=== PATIENT | male | born 1975 | race Caucasian/White ===

== ENCOUNTER → 2016-05-08 | Outpatient (CLI) | payer OTHER ==
--- NOTE | 2016-05-08 15:23 | ECHO ---
DATE OF PROCEDURE: 05/08/2016 REFERRING PHYSICIAN: INDICATION: Palpitations. PATIENT LOCATION: Outpatient. HEIGHT: 168 cm WEIGHT: 95 kg DIMENSIONS: IVS: 1.0 LV: 4.5 LVPW: 1.0 LA: 3.2 Aorta: 3.2 The study is of acceptable technical quality. Apical views were only fair. Left ventricle is of normal size and systolic function with estimated ejection fraction (EF) of 60-65%. No segmental wall motion abnormalities are appreciated. Right ventricle is normal size and systolic function. Both atria are normal. All four cardiac valves were reasonably well seen and appear normal. No pericardial effusion is noted. Inferior vena cava is normal size. Aortic root and aortic arch appear normal. Doppler interrogation reveals no aortic stenosis or insufficiency. There is trace mitral and trace tricuspid insufficiency. Calculated pulmonary artery pressure is within normal limits. There is trace pulmonic insufficiency. Mitral inflow pattern and tissue Doppler imaging of mitral annulus reveal normal diastolic function of left ventricle. CONCLUSION 1. Study is of acceptable technical quality. 2. Normal left ventricle (LV) size, systolic and diastolic function. 3. Trace mitral and tricuspid insufficiency. 4. Normal central venous pressure and normal pulmonary artery pressure. COMMENT: Subacute bacterial endocarditis (SBE) prophylaxis is not recommended. Essentially normal echocardiogram.
== END ==
LOC: M CARPUL 09:42
PROVIDERS: ATTEND Physician Assistant
DX: R00.2 Palpitations (principal)

== ENCOUNTER → 2016-05-14 | Day surgery (SDC) | payer OTHER ==
[~2016-05-14] VITALS: Ht 167.6 cm; Wt 88.5 kg
[~2016-05-14] MED LIST: BACITRACIN OINT 30GM As Ordered ONE; BACITRACIN OINT 30GM TOP ONE; BACT800T5 PO; BUPIVACAINE HCL 0.25% 10 ML VIAL As Ordered ONE; BUPIVACAINE HCL 0.25% 30 ML VIAL XX ONE; KETOROLAC 60 MG/2 ML VIAL (J1885) As Ordered ONE; LIDOCAINE 2% INJ 100 MG/5 ML SDV (FOR ANES.) As Ordered ONE; LIDOCAINE 2% MDV 20 ML VIAL As Ordered ONE; LIDOCAINE 2% MDV 20 ML VIAL XX ONE; LR 1,000 ML IV SCH; MIDAZOLAM INJ 2 MG/2 ML VIAL (J2250) As Ordered ONE; ONDANSETRON 4MG/2ML VIAL (J2405) As Ordered ONE; ONDANSETRON 4MG/2ML VIAL (J2405) IV PRN; PERCOCET 5MG/325MG TAB As Ordered ONE; PERCOCET PO; PROPOFOL 200 MG/20 ML VIAL As Ordered ONE; dexameTHASONE 4 MG/ML 1ML VIAL (J1100) As Ordered ONE; fentaNYL 100 MCG/2 ML INJECTION (J3010) IV PRN; fentaNYL 250 MCG/5 ML INJECTION (J3010) As Ordered ONE
[2016-05-14] MEDS: PERCOCET 5MG/325MG TAB PO PRN ×2 (15:20→15:41)
[2016-05-14 19:00] VITALS: BP 140/80
--- NOTE | 2016-05-15 06:55 | RO ---
DATE OF PROCEDURE: 05/14/2016 PREOPERATIVE DIAGNOSIS: Right hydrocele. POSTOPERATIVE DIAGNOSIS: Right hydrocele, plus right appendix testis. SURGERY PERFORMED: Right hydrocele repair, plus excision of right appendix testis. SURGEON: Dr. Bar Holt PLUMBING INSTRUCTOR: None. ANESTHESIA: General. COMPLICATIONS: None. ESTIMATED BLOOD LOSS: N/A. HISTORY OF PRESENT ILLNESS: 40-year-old male patient with a right hydrocele symptomatic. For this reason, he has consented for a right hydrocele repair. PROCEDURE DESCRIPTION: In a patient under general anesthesia in supine position, after prepping and draping the area of concern, which included the entire genitalia and abdomen, we did an incision in the right hemiscrotal sac, a transverse incision for about 5 cm in length. Through this incision, with the electro Bovie cautery, we opened the scrotal sac on the right side. The tunica vaginalis was opened longitudinally and then inverted and resected. We found an appendix testis and we resected it and sent if off for permanent pathology analysis. We resected the tunica vaginalis and also sent it for permanent pathology analysis. We then inserted the tunica vaginalis with #3-0 chromic. We fulgurated all the bleeding vessels and dropped the testicle inside the scrotal sac and closed the scrotal sac in two layers with running chromic #3-0 in the first layer and a second layer of the skin with running #3-0 chromic also. We placed bacitracin cream, fluffs and a scrotal support. PLAN: The patient will go home today with antibiotic and pain medication and followup in two weeks at [facility] [place].
== END | disposition home or self-care (01) ==
LOC: M SDC 10:03
PROVIDERS: ATTEND Urology
DX: N43.3 Hydrocele, unspecified (principal); Q55.29 Other congenital malformations of testis and scrotum; R00.2 Palpitations; K21.9 Gastro-esophageal reflux disease without esophagitis; M17.0 Bilateral primary osteoarthritis of knee; M81.0 Age-related osteoporosis without current pathological fracture; R06.83 Snoring; Z87.81 Personal history of (healed) traumatic fracture; Z87.891 Personal history of nicotine dependence
CPT/HCPCS: 55060; 88304; J0690; J1100; J1885; J2250; J2405; J3010